=== PATIENT | male | born 1940 ===

== ENCOUNTER → 2018-02-09 13:46 | Outpatient (REF) | payer MEDICARE, OTHER, SELFPAY | LOC: LAB 13:46 | PROVIDERS: Visit Provider Physician Assistant | DX: Z87.2 Personal history of diseases of the skin and subcutaneous tissue (principal); L82.1 Other seborrheic keratosis; D18.01 Hemangioma of skin and subcutaneous tissue; L81.2 Freckles; X32.XXXA Exposure to sunlight, initial encounter; D48.5 Neoplasm of uncertain behavior of skin; L57.0 Actinic keratosis; L82.0 Inflamed seborrheic keratosis; L01.01 Non-bullous impetigo | CPT/HCPCS: 87070; 87075; 87205 ==